=== PATIENT | female | born 1960 | race Caucasian/White ===

== ENCOUNTER 2021-12-18 17:39 | Emergency (ER) | payer SELFPAY ==
[~2021-12-18] VITALS: Ht 165 cm; Wt 84.0 kg
[2021-12-18] MEDS ORDERED: TETANUS,DIPTH,PERTUSS P/F (BOOSTRIX) 0.5 ML VIAL IM ONE (18:00)
--- NOTE | 2021-12-18 18:01 | ED Upper Extremity ---
General Chief Complaint: Upper Extremity Stated Complaint: FALL, L ARM PAIN Source: patient History of Present Illness Date Seen by Provider: Dec 18, 2021 Time Seen by Provider: 17:47 Initial Comments 61-year-old female presenting with complaints of pain and swelling to her left elbow after she had fallen on it. She reports trying to stop a golf cart that her 2-year-old granddaughter was using. She ended up falling and landing on her left elbow. She has swelling and abrasions to the elbow. She states that she has a burning pain from the abrasions. She still has normal range of motion and no numbness or tingling in her hand. She denies previous injury to her elbow. She had not taking anything for pain prior to coming to the ED. She denies any other injuries. Location Injury Occurred: Home Onset: just prior to arrival Severity: mild Pain/Injury Location: left elbow Method of Injury: fell Modifying Factors: Worse With Movement Allergies and Home Medications Allergies Coded Allergies: No Known Drug Allergies (Unverified , 12/18/21) Patient Home Medication List Home Medication List Reviewed: Yes Review of Systems Constitutional: No chills, No fever EENTM: no symptoms reported Respiratory: no symptoms reported Cardiovascular: no symptoms reported Gastrointestinal: no symptoms reported Genitourinary: no symptoms reported Musculoskeletal: see HPI Skin: see HPI Psychiatric/Neurological: Denies Numbness, Denies Paresthesia, Denies Weakness Physical Exam Vital Signs Vital Signs - First Documented 12/18/21 17:54 Temp 36.0 Pulse 101 Resp 18 B/P (MAP) 113/83 (93) Pulse Ox 100 O2 Delivery Room Air Capillary Refill : Height, Weight, BMI Height: '" Weight: lbs. oz. kg; BMI Method: General Appearance: WD/WN, no apparent distress HEENT: PERRL/EOMI Cardiovascular: normal peripheral pulses Shoulder: normal inspection, non-tender, no evidence of injury, normal ROM Elbow/Forearm: normal ROM (Bilateral normal range of motion.), abrasions (Superficial abrasions to the left elbow), soft tissue tenderness, swelling (Mild swelling and soft tissue tenderness of the left elbow) Wrist: Yes normal inspection, Yes non-tender, Yes no evidence of injury, Yes normal ROM Hand: normal inspection, non-tender, no evidence of injury, normal ROM Neurologic/Tendon: normal sensation, normal motor functions, normal tendon functions Neurologic/Psychiatric: paper sorter II-XII nml as tested, no motor/sensory deficits, alert, oriented x 3 Skin: warm/dry, other (Superficial abrasions with soft tissue swelling and mild tenderness to the left elbow) Progress/Results/Core Measures Results/Orders My Orders Orders - DIANE RIVAS MD Elbow 3 View Left (12/18/21 17:53) Wound Dressing-Ed (12/18/21 17:54) Dipht,Pertuss(Acell),Tet Adult (Boostrix (12/18/21 18:00) Vital Signs/I&O 12/18/21 12/18/21 17:54 18:28 Temp 36.0 36.0 Pulse 101 101 Resp 18 18 B/P (MAP) 113/83 (93) 113/83 Pulse Ox 100 100 O2 Delivery Room Air Room Air Progress Progress Note #1: Progress Note Order x-rays of the left elbow to evaluate for possible fracture or dislocation. Will clean the abrasions with chlorhexidine scrub soap and sterile water. Applied antibiotic ointment and a bandage. Patient states her pain is 2 out of 10 and she does not feel like she needs any medicine right now. Update tetanus booster since she does have abrasions and it has been more than 5 years since she last had a booster. With her normal range of motion and no severe pain or c repitus this may just be more contusion with abrasion causing the swelling but we will see what the x-rays show Progress Note #2: Time: 18:16 Progress Note On my review of the three-view films of her left elbow she does not have any acute fracture or dislocation. There is soft tissue swelling present. Will continue symptomatic treatment and have her apply ice and use anti- inflammatories for the burning pain and swelling. Encouraged to establish care and follow-up through the clinic if having continued issues. Patient did refuse tetanus booster as she stated she did not want to have more pain in her arms. Diagnostic Imaging Diagonstic Imaging: Xray Plain Films/CT/US/NM/MRI: elbow Comments NAME: [facility] REC#: [id number] PT STATUS: REG ER : 1960 PHYSICIAN: DIANE RIVAS MD ADMIT DATE: 12/18/21/ER FS Draft Date of Exam:12/18/21 ELBOW 3 VIEW LEFT INDICATION: pain and swelling with abrasions after fell on elbow TECHNIQUE: 3 views of the left elbow CORRELATION STUDY: None FINDINGS: Rather sizable posterior soft tissue edema/effusion. The osseous structures, however, are intact. There is no evidence for acute fracture. Well-corticated bone density adjacent to the lateral epicondyle is of no acute significance. IMPRESSION: 1. Negative for acute bony abnormality of the elbow. Rather sizable posterior soft tissue swelling/effusion. Dictated on workstation # [id number] Dict: 12/18/211816 Trans: 12/18/211820 [facility] [id number] Interpreted by: PAU GALLEGOS DO Electronically signed by: Reviewed: Reviewed by Me Departure Impression Primary Impression: Contusion of left elbow, initial encounter Additional Impressions: Abrasion of left elbow, initial encounter Fall at home Qualified Codes: W19.XXXA - Unspecified fall, initial encounter; Y92.009 - Unspecified place in unspecified non-institutional (private) residence as the place of occurrence of the external cause Disposition: 01 HOME, SELF-CARE Condition: Stable Departure-Patient Inst. Decision time for Depature: 18:27 Referrals: NO,LOCAL PHYSICIAN (PCP) Primary Care Physician [facility] Patient Instructions: Minor Contusion ED, Wound Care ED, Abrasions ED Add. Discharge Instructions: Keep abrasions clean with soap and water. May apply antibiotic ointment 2-3 times a day as needed to help with healing. Use ibuprofen or other anti-inflammatory of your choice to help with burning pain and inflammation as well as swelling. May apply ice 20 to 30 minutes every few hours as needed for pain and swelling. Follow-up through the clinic if having continued concerns and problems or if not improving. All discharge instructions reviewed with patient and/or family. Voiced understanding. DIANE RIVAS MD Dec 18, 2021 18:01
--- NOTE | 2021-12-18 18:21 | Diagnostic Imaging Report ---
INDICATION: pain and swelling with abrasions after fell on elbow TECHNIQUE: 3 views of the left elbow CORRELATION STUDY: None FINDINGS: Rather sizable posterior soft tissue edema/effusion. The osseous structures, however, are intact. There is no evidence for acute fracture. Well-corticated bone density adjacent to the lateral epicondyle is of no acute significance. IMPRESSION: 1. Negative for acute bony abnormality of the elbow. Rather sizable posterior soft tissue swelling/effusion. Dictated by: Dictated on workstation # [id number]
[2021-12-18 18:28] VITALS: BP 113/83
== END 2021-12-18 18:29 | disposition home or self-care (01) ==
LOC: ER FS 17:41
DX: S50.02XA Contusion of left elbow, initial encounter (principal); W18.30XA Fall on same level, unspecified, initial encounter; Y92.009 Unspecified place in unspecified non-institutional (private) residence as the place of occurrence of the external cause
CPT/HCPCS: 73080